=== PATIENT | male | born 1955 | race Caucasian/White ===

== ENCOUNTER 2024-11-16 12:28 | Emergency (ER) | payer MEDICARE, OTHER ==
[2024-11-16] MEDS: Albuterol/Ipratropium 3.0-0.5 MG/3 ML Neb Soln NEB ONE (12:46)
== END 2024-11-16 13:16 | disposition home or self-care (01) ==
LOC: FB.ED 12:28
DX: J44.1 Chronic obstructive pulmonary disease with (acute) exacerbation (principal)
CPT/HCPCS: 94640; 99284; A9270-GY